=== PATIENT | female | born 1990 ===

== ENCOUNTER 2019-10-12 13:52 | Inpatient (IN) | payer MEDICAID ==
[~2019-10-12] VITALS: Ht 165.1 cm; Wt 67.9 kg
[~2019-10-12 13:52] MED LIST: AMLO2.5T4 PO; FLUO-191 PO; OLAN5TAB2 PO; TRAZ-252 PO
[2019-10-12] MEDS ORDERED: HYD25 PO (16:54)
[2019-10-12 17:21] LABS: BASOPHILS % (AUTO) 0.3 % (0.0-2.0); EOSINOPHILS % (AUTO) 0.7 % (1.0-6.0); HEMATOCRIT 41.2 % (36-46); HEMOGLOBIN 13.3 g/dL (12.0-16.0); LYMPHOCYTES # (AUTO) 3.3 K/uL (1.0-4.8); LYMPHOCYTES % (AUTO) 38.8 % (22.0-44.0); MEAN CORPUSCULAR HEMOGLOBIN 28.7 pg (26.0-34.0); MEAN CORPUSCULAR HGB CONC 32.4 G/dL (31.0-37.0); MEAN CORPUSCULAR VOLUME 89 fL (80-100); MONOCYTES # (AUTO) 0.9 K/uL (0.1-1.0); MONOCYTES % (AUTO) 10.5 % (2.0-9.0); NEUTROPHILS # (AUTO) 4.3 K/uL (1.8-7.7); NEUTROPHILS % (AUTO) 49.7 % (40.0-70.0); PLATELET COUNT (AUTO) 181 K/uL (150-450); RED BLOOD CELL COUNT(AUTO) 4.64 MIL/uL (4.00-5.20); RED CELL DISTRIBUTION WIDTH 12.8 % (11.5-14.5)
[2019-10-12 17:42] LABS: ANION GAP 14 mmol/L (8-16); CALCIUM, TOTAL 9.1 mg/dL (8.8-10.5); CARBON DIOXIDE 23 mmol/L (22-29); CHLORIDE 106 mmol/L (98-107); CREATININE 0.77 mg/dL (0.60-1.30); GLOMERULAR FILTR. RATE CALC > 60 mL/min (>60); GLUCOSE,RANDOM 102 mg/dL (70-110); POTASSIUM 3.2 mmol/L (3.5-5.1); SODIUM SERUM 143 mmol/L (136-145); UREA NITROGEN, BLOOD 5 mg/dL (7-18)
[2019-10-12 17:46] LABS: ALANINE AMINOTRANSFERASE 33 U/L (12-78); ALBUMIN 4.5 g/dL (3.4-5.0); ALKALINE PHOSPHATASE 48 U/L (46-116); ASPARTATE AMINOTRANSFERASE 28 U/L (15-37); BILIRUBIN,TOTAL 0.9 mg/dL (0.1-1.0); TOTAL PROTEIN, SERUM 7.7 g/dL (6.4-8.2)
[2019-10-12] MEDS ORDERED: POTASSIUM CHLORIDE 20 MEQ ER TABLET PO ONE (18:00)
[2019-10-12 18:08] LABS: AMPHET/METH SCREEN,URINE NEGATIVE (NEGATIVE); BARBITURATE SCREEN, URINE NEGATIVE (NEGATIVE); BENZODIAZEPINES SCREEN,URINE NEGATIVE (NEGATIVE); CANNABINOID SCREEN,URINE POSITIVE (NEGATIVE); COCAINE SCREEN,URINE NEGATIVE (NEGATIVE); METHADONE SCREEN, URINE NEGATIVE (NEGATIVE); OPIATE SCREEN,URINE NEGATIVE (NEGATIVE)
[2019-10-12 18:13] LABS: PHENCYCLIDINE SCREEN,URINE NEGATIVE (NEGATIVE)
[2019-10-12] MEDS ORDERED: LORazepam 1 MG TABLET PO ONE (19:00)
[2019-10-12 21:23] VITALS: BP 121/70
[2019-10-12 21:26] VITALS: BP 121/70
[2019-10-13] MEDS: LORazepam 2 MG TABLET PO PRN ×2 (03:07→18:02)
[2019-10-13 05:20] VITALS: BP 122/75
[2019-10-13] MEDS: AmLODIPine BESYLATE 2.5 MG TABLET PO SCH (09:22)
[2019-10-13] MEDS: NICOTINE 14 MG/24 HOUR PATCH TD SCH (09:58)
[2019-10-13 10:12] VITALS: BP 133/99
[2019-10-13] MEDS ORDERED: PETROLATUM,WHITE 28 GM JELLY TP PRN (10:45)
[2019-10-13] MEDS ORDERED: ACETAMINOPHEN 325 MG TABLET PO PRN (10:45)
[2019-10-13] MEDS ORDERED: MAGNESIUM HYDROXIDE SUSPENSION 30 ML UDCUP PO PRN (10:45)
[2019-10-13] MEDS ORDERED: CloNIDine HCL 0.1 MG TABLET PO PRN (10:45)
[2019-10-13] MEDS ORDERED: LOPERAMIDE HCL 2 MG CAPSULE PO PRN (10:45)
[2019-10-13] MEDS ORDERED: ALBUTEROL SULFATE HFA 90 MCG/PUFF 8 GM INHALER IH PRN (10:45)
[2019-10-13] MEDS ORDERED: MAG HYDROX/AL HYDROX/SIMETH ES 30 ML SUSPENSION UDCUP PO PRN (10:45)
[2019-10-13] MEDS ORDERED: NICOTINE 14 MG/24 HOUR PATCH TD PRN (10:45)
[2019-10-13] MEDS ORDERED: GuaiFENesin/D-METHORPHAN [SUGAR-FREE] 200-20MG/10 ML SYRUP UDCUP PO PRN (10:45)
[2019-10-13] MEDS: ARIPiprazole 5 MG TABLET PO SCH (11:35)
[2019-10-13] MEDS: ESCITALOPRAM OXALATE 10 MG TABLET PO SCH (11:36)
[2019-10-13] MEDS: DOCUSATE SODIUM 100 MG CAPSULE PO PRN (15:45)
[2019-10-13 16:30] VITALS: BP 124/86
[2019-10-13] MEDS: ZOLPIDEM TARTRATE 10 MG TABLET PO PRN (21:39)
[2019-10-14] MEDS: NICOTINE 14 MG/24 HOUR PATCH TD SCH (08:00)
[2019-10-14] MEDS: AmLODIPine BESYLATE 2.5 MG TABLET PO SCH (08:01)
[2019-10-14] MEDS: ESCITALOPRAM OXALATE 10 MG TABLET PO SCH (08:01)
[2019-10-14] MEDS: ARIPiprazole 5 MG TABLET PO SCH (08:14)
[2019-10-14] MEDS: ONDANSETRON HCL 4 MG TABLET PO PRN (08:24)
[2019-10-14 08:32] VITALS: BP 141/90
[2019-10-14 09:46] LABS: POTASSIUM 4.3 mmol/L (3.5-5.1)
[2019-10-14] MEDS: LORazepam 2 MG TABLET PO PRN ×2 (12:29→16:57)
[2019-10-14 18:23] VITALS: BP 134/81
[2019-10-14] MEDS: DOCUSATE SODIUM 100 MG CAPSULE PO PRN (18:56)
[2019-10-14] MEDS: ZOLPIDEM TARTRATE 10 MG TABLET PO PRN (20:15)
[2019-10-15] MEDS: ESCITALOPRAM OXALATE 10 MG TABLET PO SCH (08:07)
[2019-10-15] MEDS: ARIPiprazole 5 MG TABLET PO SCH (08:07)
[2019-10-15] MEDS: AmLODIPine BESYLATE 2.5 MG TABLET PO SCH (08:09)
[2019-10-15] MEDS: NICOTINE 14 MG/24 HOUR PATCH TD SCH (08:10)
[2019-10-15 08:35] VITALS: BP 117/74
[2019-10-15 12:15] VITALS: BP 117/74
[2019-10-15] MEDS: LORazepam 2 MG TABLET PO PRN (12:17)
[2019-10-15] MEDS: ONDANSETRON HCL 4 MG TABLET PO PRN (12:17)
[2019-10-15] MEDS: IBUPROFEN 400 MG TABLET PO PRN (12:17)
[2019-10-15] MEDS: HALOPERIDOL 5 MG TABLET PO PRN (14:39)
[2019-10-15] MEDS: DOCUSATE SODIUM 100 MG CAPSULE PO PRN (16:38)
[2019-10-15 17:00] VITALS: BP 131/94
[2019-10-15] MEDS: ZOLPIDEM TARTRATE 10 MG TABLET PO PRN (21:30)
[2019-10-16] MEDS: AmLODIPine BESYLATE 2.5 MG TABLET PO SCH (08:05)
[2019-10-16] MEDS: ESCITALOPRAM OXALATE 10 MG TABLET PO SCH (08:05)
[2019-10-16] MEDS: ARIPiprazole 5 MG TABLET PO SCH (08:05)
[2019-10-16] MEDS: NICOTINE 14 MG/24 HOUR PATCH TD SCH (08:06)
[2019-10-16] MEDS: ONDANSETRON HCL 4 MG TABLET PO PRN (08:08)
[2019-10-16 10:44] VITALS: BP 128/83
[2019-10-16] MEDS ORDERED: ESCITALOPRAM OXALATE 10 MG TABLET PO ONE (11:30)
[2019-10-16 16:00] VITALS: BP 135/84
[2019-10-16] MEDS: HALOPERIDOL 5 MG TABLET PO PRN (16:06)
[2019-10-16] MEDS: LORazepam 2 MG TABLET PO PRN (16:06)
[2019-10-16] MEDS: BENZTROPINE MESYLATE 1 MG TABLET PO SCH (18:24)
[2019-10-17 08:08] VITALS: BP 131/78
[2019-10-17] MEDS: AmLODIPine BESYLATE 2.5 MG TABLET PO SCH (08:57)
[2019-10-17] MEDS: ARIPiprazole 5 MG TABLET PO SCH (08:57)
[2019-10-17] MEDS: BENZTROPINE MESYLATE 1 MG TABLET PO SCH (08:58)
[2019-10-17] MEDS: ESCITALOPRAM OXALATE 10 MG TABLET PO SCH (08:58)
[2019-10-17] MEDS: NICOTINE 14 MG/24 HOUR PATCH TD SCH (09:01)
[2019-10-17] MEDS: LORazepam 2 MG TABLET PO PRN (12:31)
[2019-10-17 16:08] VITALS: BP 144/77
[2019-10-17 16:09] VITALS: BP 144/77
[2019-10-17] MEDS: IBUPROFEN 400 MG TABLET PO PRN (16:09)
[2019-10-17] MEDS: ZOLPIDEM TARTRATE 10 MG TABLET PO PRN (21:16)
[2019-10-18 05:56] VITALS: BP 129/77
[2019-10-18] MEDS: LORazepam 2 MG TABLET PO PRN (06:34)
[2019-10-18] MEDS: AmLODIPine BESYLATE 2.5 MG TABLET PO SCH (08:25)
[2019-10-18] MEDS: ARIPiprazole 5 MG TABLET PO SCH (08:25)
[2019-10-18] MEDS: ESCITALOPRAM OXALATE 10 MG TABLET PO SCH (08:25)
[2019-10-18] MEDS: BENZTROPINE MESYLATE 1 MG TABLET PO SCH (08:25)
[2019-10-18] MEDS: NICOTINE 14 MG/24 HOUR PATCH TD SCH (08:26)
[2019-10-18 08:57] VITALS: BP 128/72
[2019-10-18 16:00] VITALS: BP 139/85
[2019-10-18] MEDS: HALOPERIDOL 5 MG TABLET PO PRN (16:04)
[2019-10-19] MEDS: ZOLPIDEM TARTRATE 10 MG TABLET PO PRN ×2 (00:22→20:51)
[2019-10-19] MEDS: DOCUSATE SODIUM 100 MG CAPSULE PO PRN (00:32)
[2019-10-19 00:40] VITALS: BP 110/62
[2019-10-19] MEDS: ARIPiprazole 10 MG TABLET PO SCH (08:22)
[2019-10-19] MEDS: AmLODIPine BESYLATE 2.5 MG TABLET PO SCH (08:22)
[2019-10-19] MEDS: ESCITALOPRAM OXALATE 10 MG TABLET PO SCH (08:22)
[2019-10-19] MEDS: BENZTROPINE MESYLATE 1 MG TABLET PO SCH (08:22)
[2019-10-19] MEDS: NICOTINE 14 MG/24 HOUR PATCH TD SCH (08:23)
[2019-10-19 08:28] VITALS: BP 129/81
[2019-10-19 17:08] VITALS: BP 137/86
[2019-10-19 19:05] VITALS: BP 125/85
[2019-10-19] MEDS: LORazepam 2 MG TABLET PO PRN (19:10)
[2019-10-20 08:00] VITALS: BP 127/82
[2019-10-20] MEDS: ESCITALOPRAM OXALATE 10 MG TABLET PO SCH (08:30)
[2019-10-20] MEDS: AmLODIPine BESYLATE 2.5 MG TABLET PO SCH (08:30)
[2019-10-20] MEDS: ARIPiprazole 10 MG TABLET PO SCH (08:30)
[2019-10-20] MEDS: BENZTROPINE MESYLATE 1 MG TABLET PO SCH (08:30)
[2019-10-20] MEDS: NICOTINE 14 MG/24 HOUR PATCH TD SCH (08:31)
[2019-10-20] MEDS ORDERED: ESCI-8 PO (11:20)
[2019-10-20] MEDS ORDERED: BENZ1TAB10 PO (11:20)
[2019-10-20] MEDS ORDERED: ARIP10TA8 PO (11:20)
[2019-10-20] MEDS ORDERED: AMLO2.5T4 PO (16:12)
== END 2019-10-20 16:30 | disposition home or self-care (01) | DRG 885 ==
LOC: EMS 13:53 → 3EI 20:54
DX: F31.5 Bipolar disorder, current episode depressed, severe, with psychotic features (principal); R45.851 Suicidal ideations; E87.6 Hypokalemia; F12.10 Cannabis abuse, uncomplicated; F41.9 Anxiety disorder, unspecified; I10 Essential (primary) hypertension; F17.210 Nicotine dependence, cigarettes, uncomplicated; Z79.899 Other long term (current) drug therapy
CPT/HCPCS: 70450; 84132; G0480; Q0162